=== PATIENT | female | born 1990 | race Caucasian/White ===

== ENCOUNTER 2017-05-05 23:28 | Emergency (ER) | payer MEDICAID, SELFPAY ==
[2017-05-05 23:30] VITALS: BP 109/70; PULSE 78; RESP 16; TEMP 36.6; O2SAT 98
--- NOTE | 2017-05-05 23:59 | ED.VISSUMM ---
- ER Visit Summary Date of Service: 05/05/17 Chief Complaint: possible abscess History of Present Illness: The patient is a 27 F history of anxiety, asthma and diet-controlled diabetes. Patient states the last 2 days she has had discomfort in her perineal region. Just below her left labia. No fever. She has never had a labial abscess. Denies other complaints. Physical Examination: Well appearing young female. Vital signs are stable and afebrile. H EENT exam unremarkable neck nontender. Lungs clear to auscultation bilaterally. Heart regular rhythm no murmur. Abdomen is soft and nontender. Normal bowel sounds no peritoneal signs. Extremities moves all 4. Neurovascular intact. With a female nurse in the room her external exam is completely unremarkable just inferior to her left labia majora between the labia and her anus there is a small area of tenderness I do not feel an abscess. There is no redness. There is no swelling. The perineal region otherwise appears normal. Test Results: None Emergency Department Course and Treatment: This will be treated as a potentially early abscess. She will be placed on Keflex 500 4 times daily for 7 days. Warm soaks. Return if it is looks a lot worse or gets significantly swollen. At this time there is absolutely nothing to drain. Treatment Plan: Keflex 500 mg 4 times daily for 7 days. Disposition: Discharge Impression: Perineal tenderness rule out early abscess This note was generated with [employer] dictation software. It may contain incorrect words, spelling, and punctuation that were not noted in review of the chart prior to signing ED Disposition - Plan for ED Patient: Chief Complaint: Abscess Referrals: Molly Cano MD [Primary Care Provider] -
--- NOTE | 2017-05-06 00:02 | ED.DEP ---
ED Disposition - Plan for ED Patient: Disposition: Home or Assisted Living Chief Complaint: Abscess Instructions: ED Staph Infec Abx Tx Only Prescriptions: Cephalexin [Keflex] 500 mg PO Q6 #30 cap Cephalexin [Keflex] 500 mg PO Q6 #30 capsule Referrals: Molly Cano MD [Primary Care Provider] - 3-5 Days if not improving Additional Instructions: Tylenol and Motrin for pain. Warm soaks 20 minutes at time twice a day. Keflex 4 times a day in case this is an early abscess. Return if this gets a lot larger to have it drained.
[2017-05-06] MEDS: Cephalexin 250 MG Capsule 500 MG PO (00:10)
== END 2017-05-06 00:14 | disposition home or self-care (01) ==
LOC: ED 05-06 00:08
PROVIDERS: Emergency Provider Emergency Medicine
DX: R10.2 Pelvic and perineal pain (principal); Z72.0 Tobacco use
CPT/HCPCS: 99283

== ENCOUNTER 2017-05-14 15:38 | Emergency (ER) | payer SELFPAY ==
[2017-05-14 15:39] VITALS: BP 115/90; PULSE 131; RESP 16; TEMP 37.7; O2SAT 99; BMI 29.0
--- NOTE | 2017-05-14 16:40 | CT_ITS ---
STUDY: CT BRAIN WITHOUT CONTRAST REASON FOR EXAM: Female, 27 years old. Headache. Opioid abuse RADIATION DOSAGE (If Supplied By Facility): CTDIvol = ( 44.99 ) mGy, DLP = ( 796.11 ) mGycm TECHNIQUE: Transaxial CT imaging of the brain was performed without administration of intravenous contrast material. Individualized dose optimization techniques were used for this CT. COMPARISON: 03/06/2015 FINDINGS: Normal soft tissue structures. Normal calvarium. Normal size ventricles and extra-axial spaces for the patient's age. Normal white matter tracts of the cerebral hemispheres. Normal basal ganglia and thalami. Normal brainstem. Normal cerebellum. There is no intracranial hemorrhage. There are no findings of an acute ischemic infarction. Left maxillary sinus mucosal retention cyst. CT/Brain/Head without Contrast IMPRESSION: Normal unenhanced CT scan of the brain. Electronically Signed: Shahid Wiggins DO at 18:05 EDT Tel , Service support ,
[2017-05-14] MEDS: 0.9% Normal Saline 1,000 ML 150 ML IV (17:11)
[2017-05-14 17:17] LABS: Absolute Lymphocyte Count 3.54 X10^3/ul (0.83-4.51); Absolute Neutrophil Count 6.9 X10^3/uL (2.0-7.7); Basophil# 0.05 X10^3/uL; Basophil% 0.4 % (0-1); Eosinophil# 0.41 X10^3/uL; Eosinophils% 3.5 % (0-5); Hematocrit 47.2 % (37-47); Hemoglobin 15.8 g/dl (12.0-15.0); Lymphocyte # 3.54 X10^3/ul (4.0); Lymphocyte % 30.4 % (19-41); Mean Corp Hgb Conc 33.5 g/gl (32-36); Mean Corpuscular Hgb 28.8 pg (27.0-32.0); Mean Platelet Vol. 10.5 fl (6.2-12.0); Neutrophil # 6.91 X10^3/uL (2.7-7.7); Neutrophil % 59.5 % (47-70); Platelet Count 384 K/mm3 (150-450); RBC Distribution Width CV 12.9 % (11.6-14.6); RBC Distribution Width SD 40.8 fl (35.1-43.9); Red Blood Count 5.49 M/mm3 (4.2-5.4); White Blood Count 11.6 K/mm3 (4.4-11.0)
[2017-05-14 17:26] LABS: POSITIVE COUNT NO; POSITIVE DIFFERENTIAL NO; POSITIVE MORPHOLOGY NO
[2017-05-14 17:36] LABS: BUN 13 mg/dL (7-18); Creatinine, Serum 0.76 mg/dL (0.55-1.02); Glucose 145 mg/dL (74-106)
[2017-05-14 17:37] LABS: Anion Gap 9 (5-15); Calcium,Total 9.3 mg/dL (8.5-10.1); Chloride 107 mmol/L (98-107); EST Glomerular Filtration Rate 97 mL/min (>60); Est Glom Filt Rate - Afr Amer 118 mL/min (>60); Estimated Creatinine Clearance 96.86 ml/min; Potassium 4.2 mmol/L (3.5-5.1); Sodium Level 139 mmol/L (136-145)
[2017-05-14 18:40] LABS: Bacteria 0 SEEN /hpf (None Seen); Mucous, Urine 0 SEEN /hpf (<or=2+); White Blood Cells 0 SEEN /hpf (0-5)
--- NOTE | 2017-05-14 18:42 | ED.VISSUMM ---
- ER Visit Summary Date of Service: 05/14/17 Chief Complaint: Left hip pain] History of Present Illness: The patient is a 27 F [presents to the emergency department with multiple complaints. The main reason she is here she developed sudden onset of left hip pain that started about 2 hours ago. Patient was riding in a car when the pain started. Patient is never had pain like this before. Patient denies any trauma. Patient is able to ambulate. Patient also describes a headache that started 20 minutes after her hip pain to the left side of her head. Patient describes some numbness and tingling to the left fingers and left toes. Patient denies any photophobia. She denies any nausea or vomiting. Patient does have history of migraines however this headache seems different than the migraine she has had.] Physical Examination: [HELEATHA-PERRLAANA PAULAMI. Cranial nerves II through XII grossly intact. TMs clear. Mucous membranes moist. No adenopathy. Cardiovascular-regular rate and rhythm without murmur or ectopy Lungs-clear to auscultation, chest wall stable without crepitus or subcu emphysema Abdomen-normoactive bowel sounds, soft, nontender, no rebound or rigidity, no peritoneal signs. Neuro wmwo-ubaiqc-qawa and heel to vargas testing within normal limits, negative Romberg, negative pronator drift, fundi benign Extremities-intact ?4, normal range of motion, normal pulses, atraumatic]. Left hip-patient does not have tenderness over the hip but more over her left iliac crest that reproduces her pain. Test Results: [CBC with differential showed a slightly elevated white count of 11.6, hemoglobin 15.8, hematocrit 47, platelets 384. Chemistries were unremarkable. CT scan of the brain without contrast was read as normal.] Patient's glucose was slightly elevated at 145. Emergency Department Course and Treatment: [Patient will be medicated with Reglan, Benadryl, and Toradol.] Treatment Plan: [Patient will be referred to primary care physician for follow-up] Disposition: [Discharge to home in stable condition] Impression: [Cephalgia Left pelvis pain-etiology uncertain] This note was generated with [employer] software. It may contain incorrect words, spelling, and punctuation that were not noted in review of the chart prior to signing ED Disposition - Plan for ED Patient: Chief Complaint: Lower Extremity Injury Referrals: Care Physician,No Primary [Primary Care Provider] -
--- NOTE | 2017-05-14 18:45 | ED.DCSUM_ITS ---
- ER Visit Summary Date of Service: 05/14/17 Chief Complaint: Left hip pain] History of Present Illness: The patient is a 27 F [presents to the emergency department with multiple complaints. The main reason she is here she developed sudden onset of left hip pain that started about 2 hours ago. Patient was riding in a car when the pain started. Patient is never had pain like this before. Patient denies any trauma. Patient is able to ambulate. Patient also describes a headache that started 20 minutes after her hip pain to the left side of her head. Patient describes some numbness and tingling to the left fingers and left toes. Patient denies any photophobia. She denies any nausea or vomiting. Patient does have history of migraines however this headache seems different than the migraine she has had.] Physical Examination: [HELEATHA-PERRLAANA PAULAMI. Cranial nerves II through XII grossly intact. TMs clear. Mucous membranes moist. No adenopathy. Cardiovascular-regular rate and rhythm without murmur or ectopy Lungs-clear to auscultation, chest wall stable without crepitus or subcu emphysema Abdomen-normoactive bowel sounds, soft, nontender, no rebound or rigidity, no peritoneal signs. Neuro hnhn-qoncpb-gwli and heel to vargas testing within normal limits, negative Romberg, negative pronator drift, fundi benign Extremities-intact ?4, normal range of motion, normal pulses, atraumatic]. Left hip-patient does not have tenderness over the hip but more over her left iliac crest that reproduces her pain. Test Results: [CBC with differential showed a slightly elevated white count of 11.6, hemoglobin 15.8, hematocrit 47, platelets 384. Chemistries were unremarkable. CT scan of the brain without contrast was read as normal.] Patient's glucose was slightly elevated at 145. Emergency Department Course and Treatment: [Patient will be medicated with Reglan, Benadryl, and Toradol.] Treatment Plan: [Patient will be referred to primary care physician for follow- up] Disposition: [Discharge to home in stable condition] Impression: [Cephalgia Left pelvis pain-etiology uncertain] This note was generated with [employer] software. It may contain incorrect words, spelling, and punctuation that were not noted in review of the chart prior to signing ED Disposition - Plan for ED Patient: Chief Complaint: Lower Extremity Injury Referrals: Care Physician,No Primary [Primary Care Provider] -
--- NOTE | 2017-05-14 18:45 | ED.DEP ---
ED Disposition - Plan for ED Patient: Chief Complaint: Lower Extremity Injury Prescriptions: Naproxen [Naprosyn] 500 mg PO BID PRN #20 tab Referrals: Care Physician,No Primary [Primary Care Provider] - Ancelmo Ferreira MD [STAFF PHYSICIAN] - 5-7 Days
[2017-05-14 18:48] LABS: Color, Urine Yellow (Yellow); Glucose, Dipstick Normal (Normal); Ketone-Dipstick 5 mg/dl (Negative); Leukocyte Esterase-Dipstick Negative /ul (Negative); Nitrite-Dipstick Negative (Negative); Occult Blood-Urine 50 /ul (Negative); Protein-Dipstick 30 mg/dl (Negative); Urine Bilirubin Dipstick Negative (Negative); Urine Clarity Clear (Clear); Urine Urobilinogen Normal (Normal)
[2017-05-14] MEDS: DiphenhydrAMINE 50 MG/ML Syringe 25 MG IV (18:48)
[2017-05-14] MEDS: Ketorolac 30 MG/ML Syringe IV (18:48)
[2017-05-14 18:55] LABS: Red Blood Cells-Urine 0-5 SEEN /hpf (0-5); Squamous Epithelial Cells - UA 0-5 SEEN /hpf (5-10)
[2017-05-14 19:11] LABS: Amphetamine Urine VISTA NEGATIVE (<1000 ng/mL); Barbiturate Urine VISTA NEGATIVE (< 200 ng/mL); Benzodiazepine Urine VISTA NEGATIVE (< 200 ng/mL); Cocaine Urine VISTA NEGATIVE (< 300 ng/mL); Ecstacy Urine VISTA NEGATIVE (< 500 ng/mL); Methadone Urine VISTA NEGATIVE (< 300 ng/mL); PCP Urine VISTA NEGATIVE (< 25 ng/mL); THC Urine VISTA NEGATIVE (< 50 ng/mL); Vista UDS pH Range 6
--- NOTE | 2017-05-14 19:11 | ED.DEP ---
ED Disposition - Plan for ED Patient: Chief Complaint: Lower Extremity Injury Instructions: ED Cephalgia Unspecified Prescriptions: Naproxen [Naprosyn] 500 mg PO BID PRN #20 tab Referrals: Ancelmo Ferreira MD [STAFF PHYSICIAN] - 5-7 Days Care Physician,No Primary [Primary Care Provider] -
[2017-05-14 19:17] VITALS: PULSE 102; RESP 14; O2SAT 99
== END 2017-05-14 19:18 | disposition home or self-care (01) ==
PROVIDERS: Emergency Provider Emergency Medicine
DX: R10.2 Pelvic and perineal pain (principal); R51 Headache; Z72.0 Tobacco use
CPT/HCPCS: 70450; 80048; 80307; 81001; 85025; 96361; 96374; 96375; 99283; J7030; A4216

== ENCOUNTER 2017-06-26 00:52 | Emergency (ER) | payer MEDICAID, SELFPAY ==
[2017-06-26 00:56] VITALS: BP 131/72; PULSE 116; RESP 21; TEMP 37.3; O2SAT 98; BMI 37.0
--- NOTE | 2017-06-26 01:01 | EKG12_ITS ---
Test Reason : CP Blood Pressure : / mmHG Vent. Rate : 111 BPM Atrial Rate : 111 BPM P-R Int : 144 ms QRS Dur : 084 ms QT Int : 334 ms P-R-T Axes : 052 026 022 degrees QTc Int : 454 ms Sinus tachycardia Inferior infarct , age undetermined Abnormal ECG Confirmed by CAROLINA SHETTY, MARY ([id number]), commercial production editor TEN AGOSTO ([id number]) on 06/28/2017 3:27:24 PM Referred By: MEMO Confirmed By:MARY FIGUEROA MD
--- NOTE | 2017-06-26 01:01 | RAD_ITS ---
STUDY: X-RAY CHEST REASON FOR EXAM: Female, 27 years old. Chest tightness palpitations one hour TECHNIQUE: PA and lateral views of the chest. COMPARISON: December 30, 2013 chest x-ray FINDINGS: The lung markings are relatively stable. There is minimal interstitial prominence in the middle lobes and lingula. There is no demonstrated pleural abnormality. Normal size heart. Normal mediastinum and mohan. Normal visualized pulmonary arteries. Normal visualized aortic arch and descending thoracic aorta. There are diffuse degenerative changes of the visualized thoracic spine. Normal visualized ribs, clavicles, and shoulders. There is no demonstrated abnormality of the visualized soft tissue structures of the upper abdomen. RAD/Chest PA and Lateral IMPRESSION: Stable chest no evidence of acute focal infiltrate. Electronically Signed: Idalia Vega MD at 1:30 EDT Tel , Service support ,
[2017-06-26 01:17] LABS: Absolute Neutrophil Count 11.4 X10^3/uL (2.0-7.7); Basophil# 0.05 X10^3/uL; Basophil% 0.3 % (0-1); Eosinophil# 0.37 X10^3/uL; Eosinophils% 2.3 % (0-5); Hematocrit 43.5 % (37-47); Hemoglobin 14.9 g/dl (12.0-15.0); Lymphocyte % 16.9 % (19-41); Mean Corp Hgb Conc 34.3 g/gl (32-36); Mean Corpuscular Hgb 28.3 pg (27.0-32.0); Mean Corpuscular Volume 82.5 fL (81-99); Mean Platelet Vol. 10.3 fl (6.2-12.0); Monocyte# 1.33 X10^3/uL; Monocyte% 8.3 % (0-10); Neutrophil # 11.44 X10^3/uL (2.7-7.7); Neutrophil % 71.9 % (47-70); Platelet Count 380 K/mm3 (150-450); RBC Distribution Width CV 13.1 % (11.6-14.6); RBC Distribution Width SD 39.4 fl (35.1-43.9); Red Blood Count 5.27 M/mm3 (4.2-5.4); White Blood Count 15.9 K/mm3 (4.4-11.0)
[2017-06-26 01:18] LABS: POSITIVE COUNT NO; POSITIVE DIFFERENTIAL NO; POSITIVE MORPHOLOGY NO
[2017-06-26] MEDS: 0.9% Normal Saline 1,000 ML 1000 ML IV (01:19)
[2017-06-26 01:24] LABS: D-Dimer Quantitative (DVT/PE) < 0.27 FEU/ug/m (0.27-0.49)
[2017-06-26 01:31] LABS: Anion Gap 13 (5-15); BUN 8 mg/dL (7-18); BUN/Creat Ratio 10.8 RATIO (10-20); Calcium,Total 9.2 mg/dL (8.5-10.1); Chloride 107 mmol/L (98-107); Creatinine, Serum 0.74 mg/dL (0.55-1.02); EST Glomerular Filtration Rate 101 mL/min (>60); Est Glom Filt Rate - Afr Amer 122 mL/min (>60); Estimated Creatinine Clearance 99.48 ml/min; Glucose 171 mg/dL (74-106); Potassium 3.4 mmol/L (3.5-5.1); Sodium Level 138 mmol/L (136-145); Thyroid Stim Hormone (TSH) 3.44 uIU/mL (0.358-3.74)
[2017-06-26 01:33] LABS: Lithium < 0.20 mmol/L (0.60-1.20)
--- NOTE | 2017-06-26 01:36 | ED.RN ---
PATIENT REQUESTS PAIN MEDICATION FOR HEADACHE, DR. HAMPTON MADE AWARE.
--- NOTE | 2017-06-26 01:57 | ED.DCSUM_ITS ---
- ER Visit Summary Date of Service: 06/26/17 Chief Complaint: Palpitations and chest pain History of Present Illness: The patient is a 27 F presenting for evaluation secondary to palpitations and chest pain. Patient states that she has a prior history of bipolar, anxiety, diabetes, hypertension, high cholesterol. Patient states that she takes atenolol for tachycardia and palpitations, as well as lithium Wellbutrin and Latuda. Patient states that she was supposed to be on diabetes hypertension high cholesterol medications but she stopped those a year ago. Patient reports that tonight she had a onset of chest tightness 1 hour ago. She states that associated with headache feelings of palpitations and shortness of breath. She has had prior similar episodes with tachycardia and anxiety. She denies any DVT or PE risk factors. Cardiovascular risk factors do include hypertension diabetes high cholesterol and smoking. She has never had a stress test. She states that she has had some subjective fevers but denies any other infectious signs or symptoms such as cough neck stiffness abnormal rashes nausea vomiting diarrhea or sore throat. Review of systems otherwise negative. Physical Examination: Vital signs notable for tachycardia rate of 116, temperature 99.2. Well-nourished female no acute distress. Head normocephalic. Moist mucous members. No JVD. Heart was tachycardic and regular no murmurs normal S1-S2. Lungs sounds clear to auscultation bilaterally no rhonchi rales or wheezes. Abdomen soft nontender nondistended. Back was nontender. Extremities showed no evidence of edema, peripheral pulses 2+ and symmetric ?4, no evidence of petechia, but the patient did have some erythema on the chest and back and face that was blanching. Patient is alert and oriented. Remainder physical otherwise unremarkable. Test Results: EKG shows sinus tachycardia with a rate of 111. There are Q waves inferiorly that are present on an EKG from October 2014. CBC demonstrates leukocytosis of 15.9 with 71 segs. Chemistry essentially unremarkable, troponin negative, d-dimer negative, lithium level 0, TSH within normal limits, chest x-ray shows no acute pathology per radiology. Emergency Department Course and Treatment: Patient presented with palpitations and chest pain. Given the patient's tachycardia she was worked up in addition to cardiovascular etiologies was worked up for the possibility of lithium toxicity, hyperthyroidism, or pulmonary embolism. Patient does not have presentation of serotonin syndrome at this point. Patient's workup did show leukocytosis with mild neutrophilic predominance. Patient could potentially be an fighting a viral infection given her constellation of symptoms. Her troponin d-dimer lithium TSH studies EKG and chest x-ray were all unremarkable. Patient continued to have tachycardia after 1 L normal saline. She states she has had a history of this in the past, and is on beta-blockers for this. She was administered atenolol, as well as Tylenol. Patient will be given a referral to cardiology as she does not have a local document design specialist. I believe that the patient is safe for discharge, her heart score is 2, her GUANACO risk score is 1. Patient will be discharged with outpatient follow-up with Dr. Caldera. Disposition: Discharge Impression: 1. Palpitations with sinus tachycardia 2. Leukocytosis This note was generated with [email or web address] dictation software. It may contain incorrect words, spelling, and punctuation that were not noted in review of the chart prior to signing ED Disposition - Plan for ED Patient: Disposition: Home or Assisted Living Chief Complaint: Chest Pain Diagnosis: Heart palpitations Instructions: ED Palpitations Referrals: Michael Caldera MD [STAFF PHYSICIAN] - 3-5 Days
[2017-06-26 01:59] VITALS: BP 138/95; PULSE 107; RESP 26; O2SAT 96
[2017-06-26] MEDS: Acetaminophen 500 MG Tablet 1000 MG PO (02:06)
[2017-06-26] MEDS: Atenolol 50 MG Tablet PO (02:06)
== END 2017-06-26 02:23 | disposition home or self-care (01) ==
PROVIDERS: Emergency Provider Emergency Medicine; Family Provider Internal Medicine; PCP Internal Medicine
DX: R00.0 Tachycardia, unspecified (principal); R00.2 Palpitations; D72.829 Elevated white blood cell count, unspecified; F31.9 Bipolar disorder, unspecified; F41.9 Anxiety disorder, unspecified; I10 Essential (primary) hypertension; E78.00 Pure hypercholesterolemia, unspecified; F17.200 Nicotine dependence, unspecified, uncomplicated; Z79.899 Other long term (current) drug therapy
CPT/HCPCS: 71046; 80048; 80178; 84443; 84484; 85025; 85379; 93005; 96360; 99285; J7030

== ENCOUNTER 2017-07-20 00:53 | Emergency (ER) | payer MEDICAID, SELFPAY ==
[2017-07-20 00:56] VITALS: BP 157/100; PULSE 62; RESP 16; TEMP 36.9; O2SAT 98; BMI 29.2
--- NOTE | 2017-07-20 01:24 | ED.VISSUMM ---
- ER Visit Summary Date of Service: 07/20/17 Chief Complaint: Right upper teeth pain History of Present Illness: The patient is a 27 F who presents with pain right upper teeth for the past couple days. She denies any alleviating or exacerbating factors. She denies fever, chills night sweats. She denies any ocular, auditory or visual symptoms. She denies inability to open or close her mouth completely. She has no history rheumatic fever, murmur, SPE, IV drug use to be immune suppressed. 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 She states she has an appointment with her dentist on Saturday. She is a smoker of one pack per day. Physical Examination: Vital signs remarkable blood pressure 157/100. Head is atraumatic normocephalic. Pupils equal round reactive paradoxic muscle intact. Conjunctive is not injected. Sclerae anicteric. TMs are normal. There is no TMJ tenderness. There is no evidence of malocclusion or trismus. Nares patent with no discharge. Patient has numerous cavities of her right upper teeth. There is no swelling of the gum or face. There is no evidence of facial cellulitis. Trach is midline. There is no stridor. Heart is regular without murmur, gallop or rub. S1 and S2 are normal. Lungs are clear to auscultation with good movement of air bilaterally. Test Results: None Emergency Department Course and Treatment: Patient was treated with NSAIDs. She was instructed to keep her appointment with her dentist. Treatment Plan: Anti-inflammatory Disposition: Discharged to home with outpatient follow-up with dentist on Saturday Impression: 1. Pain right upper first bicuspid, second bicuspid and first molar secondary to caries involving the enamel and most likely the dentin. This note was generated with [employer] dictation software. It may contain incorrect words, spelling, and punctuation that were not noted in review of the chart prior to signing ED Disposition - Plan for ED Patient: Disposition: Home or Assisted Living Chief Complaint: Dental Instructions: ED Cavity Dental Prescriptions: Naproxen [Naprosyn] 500 mg PO BID #14 tab Referrals: Molly Cano MD [Primary Care Provider] - Dentist,Your [STAFF PHYSICIAN] - Keep Rober[facility] appointment
[2017-07-20] MEDS: Naproxen 250 MG Tablet 500 MG PO (01:35)
== END 2017-07-20 01:37 | disposition home or self-care (01) ==
PROVIDERS: Emergency Provider Emergency Medicine; Family Provider Internal Medicine; PCP Internal Medicine
DX: K02.9 Dental caries, unspecified (principal); K08.89 Other specified disorders of teeth and supporting structures; F17.200 Nicotine dependence, unspecified, uncomplicated; Z79.899 Other long term (current) drug therapy
CPT/HCPCS: 99283

== ENCOUNTER 2017-08-13 16:11 | Emergency (ER) | payer MEDICAID, SELFPAY ==
[2017-08-13 16:11] VITALS: BP 141/72; PULSE 90; RESP 16; TEMP 36.8; O2SAT 99; BMI 30.9
[2017-08-13 16:35] LABS: Bedside Glucose 281 mg/dL (70-110)
--- NOTE | 2017-08-13 16:43 | ED.VISSUMM ---
- ER Visit Summary Date of Service: 08/13/17 Chief Complaint: Elevated blood sugar History of Present Illness: The patient is a 27 F presenting from urgent care for elevated blood sugar. She states that she has a history of diabetes and has been off her medication for approximately a year. She states she lost her insurance and recently regained insurance. She went to urgent care today and they sent her to the ED. She complains of headache, nausea, urinary frequency. Physical Examination: Vitals are stable. Patient is afebrile. Alert no acute distress. HEENT exam is unremarkable. Neck is supple. Lungs are clear and equal bilaterally. Heart is regular rate and rhythm. Abdomen is soft nontender nondistended. Pelvic: No vaginal discharge, no cervical motion tenderness, no adnexal tenderness. Extremities are unremarkable. Skin is warm and dry. No focal neurologic deficit. Remainder of exam is unremarkable. Emergency Department Course and Treatment: CBC unremarkable. Chemistries show glucose 268, BUN 22. Ketones are negative. Urinalysis shows positive glucose, 0 white cells. HCG negative. Patient was given Compazine, Benadryl, IV fluids. She has resolution of her headache following medications. She is feeling improved. She states she has Januvia available to her at home and she will start taking this. She is advised to follow-up with her primary care physician. Advised return to ED if worsening complaints. Disposition: Discharge home Impression: Hyperglycemia, headache resolved This note was generated with [employer] dictation software. It may contain incorrect words, spelling, and punctuation that were not noted in review of the chart prior to signing ED Disposition - Plan for ED Patient: Chief Complaint: Hyperglycemia Instructions: ED Hyperglycemia Diabetic Referrals: Molly Cano MD [Primary Care Provider] -
[2017-08-13] MEDS: 0.9% Normal Saline 1,000 ML 1000 ML IV (16:50)
[2017-08-13] MEDS: DiphenhydrAMINE 50 MG/ML Syringe 25 MG IV (16:51)
[2017-08-13] MEDS: proCHLORPERazine 10 MG/2 ML Vial IV (16:51)
[2017-08-13 17:18] LABS: Absolute Lymphocyte Count 3.28 X10^3/ul (0.83-4.51); Absolute Neutrophil Count 4.9 X10^3/uL (2.0-7.7); Basophil# 0.05 X10^3/uL; Basophil% 0.5 % (0-1); Eosinophil# 0.47 X10^3/uL; Hematocrit 40.4 % (37-47); Hemoglobin 13.6 g/dl (12.0-15.0); Lymphocyte # 3.28 X10^3/ul (4.0); Lymphocyte % 35.2 % (19-41); Mean Corp Hgb Conc 33.7 g/gl (32-36); Mean Corpuscular Hgb 27.9 pg (27.0-32.0); Mean Platelet Vol. 9.8 fl (6.2-12.0); Monocyte# 0.57 X10^3/uL; Monocyte% 6.1 % (0-10); Neutrophil % 52.8 % (47-70); Platelet Count 264 K/mm3 (150-450); RBC Distribution Width CV 12.5 % (11.6-14.6); RBC Distribution Width SD 37.4 fl (35.1-43.9); Red Blood Count 4.87 M/mm3 (4.2-5.4); White Blood Count 9.3 K/mm3 (4.4-11.0)
[2017-08-13 17:20] LABS: POSITIVE COUNT NO; POSITIVE DIFFERENTIAL NO; POSITIVE MORPHOLOGY NO
[2017-08-13 17:24] LABS: Bacteria 0 SEEN /hpf (None Seen); Mucous, Urine 0 SEEN /hpf (<or=2+); Red Blood Cells-Urine 0 SEEN /hpf (0-5); White Blood Cells 0 SEEN /hpf (0-5)
[2017-08-13 17:27] LABS: Color, Urine Yellow (Yellow); Glucose, Dipstick 1000 mg/dl (Normal); Ketone-Dipstick 5 mg/dl (Negative); Leukocyte Esterase-Dipstick Negative /ul (Negative); Nitrite-Dipstick Negative (Negative); Occult Blood-Urine 50 /ul (Negative); Protein-Dipstick 15 mg/dl (Negative); Urine Bilirubin Dipstick Negative (Negative); Urine Clarity Clear (Clear); Urine Urobilinogen Normal (Normal)
[2017-08-13 17:37] LABS: Anion Gap 9 (5-15); BUN 22 mg/dL (7-18); BUN/Creat Ratio 25.9 RATIO (10-20); Calcium,Total 8.8 mg/dL (8.5-10.1); Chloride 104 mmol/L (98-107); Creatinine, Serum 0.85 mg/dL (0.55-1.02); EST Glomerular Filtration Rate 86 mL/min (>60); Est Glom Filt Rate - Afr Amer 104 mL/min (>60); Estimated Creatinine Clearance 86.61 ml/min; Glucose 268 mg/dL (74-106); Potassium 3.7 mmol/L (3.5-5.1); Sodium Level 136 mmol/L (136-145)
[2017-08-13 17:40] VITALS: BP 121/80; PULSE 88; RESP 16; O2SAT 94
[2017-08-13 17:43] LABS: Pregnancy, Serum, hCG Quali. NEGATIVE Negative (0-9 Nonpreg)
[2017-08-13 17:45] LABS: Squamous Epithelial Cells - UA 0-5 SEEN /hpf (5-10)
--- NOTE | 2017-08-13 18:07 | ED.DEP ---
ED Disposition - Plan for ED Patient: Chief Complaint: Hyperglycemia Instructions: ED Hyperglycemia Diabetic Referrals: Molly Cano MD [Primary Care Provider] -
[2017-08-13 18:16] LABS: Bedside Glucose 261 mg/dL (70-110)
== END 2017-08-13 18:38 | disposition home or self-care (01) ==
LOC: ED 16:48
PROVIDERS: Emergency Provider Emergency Medicine; Family Provider Internal Medicine; PCP Internal Medicine
DX: E11.65 Type 2 diabetes mellitus with hyperglycemia (principal); R51 Headache; Z72.0 Tobacco use; Z79.899 Other long term (current) drug therapy
CPT/HCPCS: 80048; 81001; 82009; 82962; 84703; 85025; 96361; 96374; 96375; 99283; J7030; A4216

== ENCOUNTER 2017-11-04 11:01 | Emergency (ER) | payer MEDICAID, SELFPAY ==
[2017-11-04 11:02] VITALS: BP 111/74; PULSE 116; RESP 17; TEMP 37.1; O2SAT 98; BMI 31.1
[2017-11-04] MEDS: Metoclopramide 10 MG/2 ML Vial IV (11:39)
[2017-11-04] MEDS: 0.9% Normal Saline 1,000 ML 1000 ML IV (11:39)
[2017-11-04] MEDS: DiphenhydrAMINE 50 MG/ML Syringe 25 MG IV (11:39)
[2017-11-04] MEDS: Ketorolac 30 MG/ML Syringe IV (12:29)
--- NOTE | 2017-11-04 12:43 | ED.VISSUMM ---
- ER Visit Summary Date of Service: 11/04/17 Chief Complaint: [headache] History of Present Illness: The patient is a 27 F [that presents with gradual onset headache that began 3 days ago. She has had headaches on and off for the last 5 years. She took some NSAIDs at home without significant relief last night. She has not yet taken anything today. She denies any other associated symptoms or complaints. She overall appears well and nontoxic. No recent fever or illness. She denies any recent fall or head trauma. She states this headache is exactly the same as her prior headaches in the past. She has no other complaints.] Physical Examination: [General: The patient appears well and in no apparent distress. Patient is resting comfortably on cart. Skin: Warm, dry, no pallor noted. No rash. Head: Normocephalic, atraumatic. No temporal artery tenderness or jaw claudication. Neck: Supple, nontender. Eye: PERRLA, EOMI ENT: Moist mucus membranes, pharynx within normal limits. No tenderness or erythema. Cardiovascular: Regular Rate and Rhythm, no gallups or rubs Respiratory: Patient is in no distress, no accessory muscle use, lungs are clear to auscultation, no wheezing, rales or rhonchi Musculoskeletal: normal ROM, no deformity, no tenderness, no swelling. 2+ radial and DP pulses symmetric. GI: No tenderness to palpation, no masses appreciated. No rebound, guarding, or rigidity noted. Neurological: A&O, normal strength and sensation. GCS 15. NIH equals 0. Psychiatric: Cooperative] Test Results: [] Emergency Department Course and Treatment: [Patient was initially given IV fluids, Reglan, and Benadryl. She was then given IV Toradol. On reevaluation at 1235 she states her headache is improved. Her neurological exam remains normal. She states she had an outpatient head CT last week that she was told was normal. I do not feel repeat imaging or further evaluation is indicated in the emergency department at this time. I do not feel her presentation is consistent with acute intracranial process or subarachnoid hemorrhage. She was advised to follow closely with her primary provider and return with any new or worsening symptoms. Patient understands and is agreeable with this plan of care. Patient was discharged home in stable and improved condition.] Treatment Plan: [see above] Disposition: [discharge home, stable condition] Impression: [Acute on chronic headache - improved] This note was generated with [employer] dictation software. It may contain incorrect words, spelling, and punctuation that were not noted in review of the chart prior to signing ED Disposition - Plan for ED Patient: Disposition: Home or Assisted Living Chief Complaint: Headache Instructions: ED Cephalgia Unspecified Referrals: Molly Cano MD [Primary Care Provider] -
[2017-11-04 12:51] VITALS: PULSE 105; RESP 17; O2SAT 97
== END 2017-11-04 12:52 | disposition home or self-care (01) ==
PROVIDERS: Emergency Provider Emergency Medicine; Family Provider Internal Medicine; PCP Internal Medicine
DX: R51 Headache (principal); F41.9 Anxiety disorder, unspecified; F31.9 Bipolar disorder, unspecified; F43.10 Post-traumatic stress disorder, unspecified; Z72.0 Tobacco use; Z79.899 Other long term (current) drug therapy
CPT/HCPCS: 96361; 96374; 96375; 99283; J7030; A4216

== ENCOUNTER 2017-11-05 22:46 | Emergency (ER) | payer MEDICAID, SELFPAY ==
[2017-11-05 22:46] VITALS: BP 105/74; PULSE 99; RESP 16; TEMP 36.4; O2SAT 97; BMI 30.9
--- NOTE | 2017-11-05 23:30 | ED.VISSUMM ---
- ER Visit Summary Date of Service: 11/05/17 Chief Complaint: Mechanical fall History of Present Illness: The patient is a 27 F presents to the emergency department after mechanical fall. Patient states she was visiting a friend in [place]. She was going upstairs. They were carpeted. She tripped over her cat and slid backwards. She struck her low back. She did not hit her head. She denies loss of consciousness. She has been able to ambulate. Her only current complaint is of lower back pain into her left buttock. She has not taken anything for her pain. The patient is otherwise healthy. She does have a history of psychiatric illness but takes no anticoagulants. Physical Examination: Afebrile, vitals unremarkable. Well-appearing female no acute distress. Head is normocephalic, atraumatic. Pupil's equal round reactive, extraocular muscles intact. Neck supple. Heart regular rate and rhythm. Lungs clear, chest nontender. Abdomen soft, nontender, nondistended. No pulsatile mass. Patient has paraspinal tenderness in the lumbar area, but no bony tenderness. Straight leg raise is negative bilaterally. 2+ symmetric lower extremity pulses. 2+ reflexes. No clonus. No weakness of dorsiflexion, plantar flexion, or extensor hallucis longus bilaterally. Test Results: [] Emergency Department Course and Treatment: The patient has no red flag symptoms. She has a normal steady gait. She was given oral [place] for pain control. I did obtain plain films. There is no evidence of acute fracture. Her pain was improved. The patient will be treated with anti-inflammatories and antispasmodics. At this time, I do feel that she is safe for outpatient therapy. Treatment Plan: [] Disposition: Discharge Impression: Lumbar contusion status post fall This note was generated with [employer] dictation software. It may contain incorrect words, spelling, and punctuation that were not noted in review of the chart prior to signing ED Disposition - Plan for ED Patient: Disposition: Home or Assisted Living Chief Complaint: Fall Instructions: ED Sprain Strain Lumbar Prescriptions: Naproxen [Naprosyn] 500 mg PO BID PRN #20 tab Cyclobenzaprine [Flexeril] 10 mg PO TID PRN #20 tab PRN Reason: Muscle Spasm Referrals: Molly Cano MD [Primary Care Provider] -
[2017-11-05] MEDS: HYDROcodone Bitartrate/Apap 5/325 Tablet PO (23:31)
--- NOTE | 2017-11-05 23:34 | RAD_ITS ---
STUDY: X-RAY - LUMBAR SPINE REASON FOR EXAM: Female, 27 years old. Low back pain status post fall TECHNIQUE: 3 view(s) of the lumbar spine were obtained. COMPARISON: November 08, 2014 FINDINGS: Normal lumbar lordosis. There is no substantial scoliosis. There is a normal alignment of the vertebrae. Normal vertebral bodies and endplates. Normal disc space heights. The soft tissue structures are unremarkable. RAD/Lumbar Spine 2 or 3 Views IMPRESSION: Normal x-ray examination of the lumbar spine. Electronically Signed: Idalia Vega MD at 0:26 EDT Tel , Service support ,
[2017-11-06 00:43] VITALS: PULSE 78; RESP 16; O2SAT 98
== END 2017-11-06 00:43 | disposition home or self-care (01) ==
LOC: ED 11-06 00:12
PROVIDERS: Emergency Provider Emergency Medicine; Family Provider Internal Medicine; PCP Internal Medicine
DX: S30.0XXA Contusion of lower back and pelvis, initial encounter (principal); I10 Essential (primary) hypertension; F32.9 Major depressive disorder, single episode, unspecified; Z72.0 Tobacco use; Z79.899 Other long term (current) drug therapy; W10.9XXA Fall (on) (from) unspecified stairs and steps, initial encounter; Y93.01 Activity, walking, marching and hiking; Y92.008 Other place in unspecified non-institutional (private) residence as the place of occurrence of the external cause; Y99.8 Other external cause status
CPT/HCPCS: 72100; 99283

== ENCOUNTER 2018-01-10 23:29 | Emergency (ER) | payer SELFPAY ==
[2018-01-10 23:30] VITALS: BP 123/71; PULSE 93; RESP 18; TEMP 36.8; O2SAT 100; BMI 30.2
[2018-01-10] MEDS: Naproxen 500 MG Tablet PO (23:57)
[2018-01-10] MEDS: 0.9% Normal Saline 1,000 ML 999 ML IV (23:57)
[2018-01-11 00:04] LABS: Absolute Lymphocyte Count 4.08 X10^3/ul (0.83-4.51); Absolute Neutrophil Count 3.1 X10^3/uL (2.0-7.7); Basophil# 0.07 X10^3/uL; Basophil% 0.8 % (0-1); Eosinophil# 0.42 X10^3/uL; Hematocrit 38.2 % (37-47); Hemoglobin 13.2 g/dl (12.0-15.0); Lymphocyte # 4.08 X10^3/ul (4.0); Lymphocyte % 48.9 % (19-41); Mean Corp Hgb Conc 34.6 g/gl (32-36); Mean Corpuscular Hgb 27.5 pg (27.0-32.0); Mean Corpuscular Volume 79.6 fL (81-99); Mean Platelet Vol. 10.3 fl (6.2-12.0); Monocyte# 0.65 X10^3/uL; Monocyte% 7.8 % (0-10); Neutrophil # 3.08 X10^3/uL (2.7-7.7); Platelet Count 327 K/mm3 (150-450); RBC Distribution Width CV 14.6 % (11.6-14.6); RBC Distribution Width SD 40.9 fl (35.1-43.9); White Blood Count 8.3 K/mm3 (4.4-11.0)
[2018-01-11 00:05] LABS: POSITIVE COUNT NO; POSITIVE DIFFERENTIAL NO; POSITIVE MORPHOLOGY NO
[2018-01-11 00:17] LABS: Anion Gap 9 (5-15); BUN 14 mg/dL (7-18); BUN/Creat Ratio 17.3 RATIO (10-20); Calcium,Total 8.7 mg/dL (8.5-10.1); Chloride 102 mmol/L (98-107); Creatinine, Serum 0.81 mg/dL (0.55-1.02); EST Glomerular Filtration Rate 90 mL/min (>60); Est Glom Filt Rate - Afr Amer 109 mL/min (>60); Estimated Creatinine Clearance 90.09 ml/min; Glucose 320 mg/dL (74-106); Potassium 3.7 mmol/L (3.5-5.1); Sodium Level 133 mmol/L (136-145)
--- NOTE | 2018-01-11 00:27 | ED.VISSUMM ---
- ER Visit Summary Date of Service: 01/11/18 Chief Complaint: High blood sugar History of Present Illness: The patient is a 28 F who presents with high blood sugar. Today shortly before coming in she checked her blood sugar at home and it was 362. She states that she was recently hospitalized and discharged last week with a prescription for insulin but she could not afford it because of cost $400. She states she attempted to contact the hospital but did not hear back. She is meeting with someone on Saturday for possible financial assistance. She also complains of some neck pain with sharp shooting pains and numbness down her left arm. She denies any chest pain shortness of breath dizziness vomiting diarrhea. Physical Examination: Afebrile vitals normal Moist mucous membranes Heart regular rate and rhythm Lungs clear Abdomen soft Active full range of motion of left upper extremity no edema no reproducible tenderness normal sensation light touch brisk capillary refill palpable radial pulse Test Results: CBC BMP notable for sodium 133 glucose 320. Emergency Department Course and Treatment: Patient was treated with IV fluids and given naproxen for her left upper extremity pain. I do suspect her left arm pain is related to cervical radiculopathy given radiation from neck and her description of it is both sharp and numb. I have placed a consult to case management in regards to her medications. Her glucose is only 320 and we did treat with IV fluids. She is requesting discharge. She will follow-up as an outpatient. Treatment Plan: [] Disposition: Discharge Impression: Diabetic hyperglycemia Cervical radiculopathy This note was generated with [employer] dictation software. It may contain incorrect words, spelling, and punctuation that were not noted in review of the chart prior to signing ED Disposition - Plan for ED Patient: Chief Complaint: Hyperglycemia Referrals: Molly Cano MD [Primary Care Provider] -
--- NOTE | 2018-01-11 00:29 | ED.DEP ---
ED Disposition - Plan for ED Patient: Chief Complaint: Hyperglycemia Instructions: ED Hyperglycemia Diabetic, ED Cervical Radiculopathy Referrals: Molly Cano MD [Primary Care Provider] -
[2018-01-11 00:31] LABS: Bedside Glucose 304 mg/dL (70-110)
[2018-01-11 00:32] VITALS: BP 130/70; PULSE 85; RESP 14; O2SAT 98
--- NOTE | 2018-01-13 09:25 | CM.ED ---
Social Work Note Referral from Dr. Lester for financial concerns. Chart review reveals that the pt is uninsured, but it appears that she has had Medicaid in the past. Placed call and pt unavailable. Left requesting a return phone call. Sabra Guillen, ZACK, DEMARCUS
== END 2018-01-11 00:35 | disposition home or self-care (01) ==
LOC: ED 01-11 00:05
PROVIDERS: Emergency Provider Emergency Medicine; Family Provider Internal Medicine; PCP Internal Medicine
DX: E11.65 Type 2 diabetes mellitus with hyperglycemia (principal); M54.12 Radiculopathy, cervical region; Z72.0 Tobacco use
CPT/HCPCS: 80048; 82962; 85025; 99283; J7030; A4216

== ENCOUNTER 2018-02-06 09:11 | Emergency (ER) | payer SELFPAY ==
[2018-02-06 09:13] VITALS: BP 121/69; PULSE 86; RESP 14; TEMP 36.3; O2SAT 97; BMI 29.5
--- NOTE | 2018-02-06 09:40 | ED.VIS.GEN ---
History of Present Illness Chief Complaint: Back Informant: Patient Onset: Yesterday Context: Onset with activity - lifting case of water off the floor, Sudden Onset Quality: felt pop in left upper back, followed by soreness/pain Location: left upper back/periscapular area Current Severity: Moderate Maximum Severity: Severe Worsened by: movement Relieved by: rest. no help w/ tylenol or ibuprofen. Associated Symptoms: mild discomfort in left thumb. no painful paresthesias. Narrative: No direct trauma. RHD. Prior similar symptoms: No - Past Medical History (1) Opiate overdose Status: Resolved Past Medical History - Allergies and Home Meds Allergies/Adverse Reactions: Allergies egg Adverse Reaction (Verified 02/06/18 09:12) Nausea VOMITING Primary Care Physician: Molly Cano MD [Primary Care Provider] - Surgical History: tonsillectomy, - - section. Smoking Status: Current every day smoker - Family History Maternal Family History: Reports: No pertinent history Paternal Family History: Reports: No pertinent history Review of Systems Musculoskeletal: Reports: Back pain, Extremity Pain. Denies: Neck pain, Swelling Skin: Denies: Rash, Wounds Neurological: Denies: Weakness, Parasthesia, Numbness Physical Exam Vital Signs/Narrative: Vital Signs Temp Pulse Resp BP Pulse Ox 02/06/18 09:13 97.3 F L 86 14 121/69 H 97 Inital Vital Signs reviewed: Yes General: Well nourished, Well developed, - - well-appearing, nad Head: Normocephalic, Atraumatic Eyes: Perrl, EOMI Neck: Supple - FROM, Nontender Back: Normal Inspection, - - tender left trapezius and area of rhomboids, less tender over body of scapula. no tenderness subacromial. FROM shoulder.. Negative for: Spinal tenderness Extremities: Nontender, No edema Skin: Normal color, No rash, No Trauma Neurological: Alert, Oriented x3, Cranial nerves II-XII grossly intact, Normal Strength, Normal Sensation, Normal Gait Psychological: Normal affect Diagnostic/Tx/Re-eval - Medical Decision Making No x-rays indicated. Consistent with trapezius strain. Supportive care advised and close outpatient follow-up. If her mild left hand symptoms are radicular, she will have persistent discomfort and probably develop worse pain and paresthesias, which she does not currently have, and should follow-up. Given naproxen and Flexeril prescriptions as well as medications here. She is comfortable with that plan. ED Disposition - Plan for ED Patient: Disposition: Home or Assisted Living Chief Complaint: Back Diagnosis: Strain of left trapezius muscle Instructions: ED Sprain Thoracic Spine Prescriptions: Naproxen [Naprosyn] 500 mg PO BID PRN #20 tab Cyclobenzaprine [Flexeril] 10 mg PO TID PRN #20 tab PRN Reason: Muscle Spasm Referrals: Molly Cano MD [Primary Care Provider] - 1 Week if not improving
[2018-02-06] MEDS: Orphenadrine 60 MG/2 ML Ampul IM (10:14)
[2018-02-06] MEDS: Ketorolac 60 MG/2 ML Vial IM (10:14)
[2018-02-06 10:32] VITALS: BP 107/67; PULSE 52; RESP 16; O2SAT 98
== END 2018-02-06 10:34 | disposition home or self-care (01) ==
PROVIDERS: Emergency Provider Emergency Medicine; Family Provider Internal Medicine; PCP Internal Medicine
DX: S29.012A Strain of muscle and tendon of back wall of thorax, initial encounter (principal); X50.0XXA Overexertion from strenuous movement or load, initial encounter; Y93.89 Activity, other specified; Y92.89 Other specified places as the place of occurrence of the external cause; Y99.8 Other external cause status; F17.200 Nicotine dependence, unspecified, uncomplicated
CPT/HCPCS: 96372; 99282

== ENCOUNTER 2018-03-12 17:13 | Emergency (ER) | payer MEDICAID, SELFPAY ==
[2018-03-12 17:14] VITALS: BP 116/66; PULSE 117; RESP 18; TEMP 36.6; O2SAT 98; BMI 29.2
--- NOTE | 2018-03-12 18:14 | ED.VIS.GEN ---
History of Present Illness Chief Complaint: Back Informant: Patient Onset: Hours - 2-3 Context: Sudden Onset - slipped on ice and landed on back vs. concrete Timing: Continuous Quality: ache/sore Location: right mid-low back Current Severity: Severe Maximum Severity: Severe Worsened by: movement. a little w/ deep breath. Relieved by: remaining still Associated Symptoms: none. no sob, hematuria, radiation down LE. Narrative: Slipped on ice and fell on back, pain on the right side. No other injuries. No head injury. No loss of consciousness, nausea, vomiting, neurologic symptoms. No abdominal pain. She urinated, and it was not bloody or abnormal. - Past Medical History (1) Opiate overdose Status: Resolved Past Medical History - Allergies and Home Meds Allergies/Adverse Reactions: Allergies egg Adverse Reaction (Verified 03/12/18 17:14) Nausea VOMITING Primary Care Physician: Molly Cano MD [Primary Care Provider] - Surgical History: tonsillectomy, - - section. Smoking Status: Current every day smoker Alcohol: None - Family History Maternal Family History: Reports: No pertinent history Paternal Family History: Reports: No pertinent history Review of Systems Respiratory: Denies: Dyspnea, Cough Gastrointestinal: Denies: Abdominal pain, Nausea, Vomiting Musculoskeletal: Reports: Back pain. Denies: Neck pain, Extremity Pain Skin: Denies: Rash, Abrasions, Wounds Neurological: Denies: Headache, Weakness, Parasthesia Physical Exam Vital Signs/Narrative: Vital Signs Temp Pulse Resp BP Pulse Ox 03/12/18 17:14 98 F 117 H 18 116/66 98 Inital Vital Signs reviewed: Yes General: Well nourished, Well developed Head: Normocephalic, Atraumatic Abdomen: Soft, Nontender, Nondistended, Normal bowel sounds Back: Normal Inspection, - - tender right paraspinal thoracic spine, in lower 3 ribs or so. no crepitance or flail segment, tender into lower ribs in right flank but no subcostal tenderness.. Negative for: Spinal tenderness Extremities: Nontender, No edema Skin: Normal color, No rash Neurological: Alert, Oriented x3, Cranial nerves II-XII grossly intact, Normal Strength, Normal Sensation, Normal Gait Psychological: Normal affect Diagnostic/Tx/Re-eval Clinical Impression(s) from Imaging Studies Ribs w/Chest X-Ray 03/12/18 18:30 IMPRESSION: RIBS: Normal x-ray examination of the ribs. CHEST: No acute cardiopulmonary disease or interval change. Electronically Signed: Duane Gray DO at 18:43 EST Tel [phone], Service support , - Medical Decision Making X-rays of the rib cage and chest are unremarkable. Patient was given naproxen and tramadol and asking for something else and stronger for pain. Given hx of opiate overdose, I am not comfortable prescribing her narcotics. Will offer a prescription for naproxen, also given discharge instructions with regards to other measures of supportive care. ED Disposition - Plan for ED Patient: Disposition: Home or Assisted Living Chief Complaint: Back Diagnosis: Fall from slipping on ice, Contusion of rib on right side Instructions: ED Contusion Rib Prescriptions: Naproxen [Naprosyn] 500 mg PO BID PRN #20 tab Referrals: Molly Cano MD [Primary Care Provider] - 1 Week if not improving
[2018-03-12] MEDS: traMADol 50 MG Tablet PO (18:20)
[2018-03-12] MEDS: Naproxen 500 MG Tablet PO (18:20)
--- NOTE | 2018-03-12 18:30 | RAD_ITS ---
STUDY: X-RAY - UNILATERAL RIBS ( RIGHT ) WITH CHEST REASON FOR EXAM: Female, 28 years old. Injury. TECHNIQUE - RIBS: 4 view(s) of the ribs. TECHNIQUE - CHEST: Single PA view of the chest. COMPARISON: Chest, June 26, 2017. FINDINGS - RIBS: Normal visualized ribs without a demonstrated fracture. FINDINGS - CHEST: The lungs are clear and expanded. There is no infiltrate or mass. There is no pneumothorax. There is no demonstrated pleural abnormality. Normal size heart. Normal mediastinum and mohan. Normal visualized pulmonary arteries. Normal visualized aortic arch and descending thoracic aorta. There are no visualized osseous changes. There is no demonstrated abnormality of the visualized soft tissue structures of the upper abdomen. RAD/Ribs Uni Min 3V w/PA Chest IMPRESSION: RIBS: Normal x-ray examination of the ribs. CHEST: No acute cardiopulmonary disease or interval change. Electronically Signed: Duane Gray DO at 18:43 EST Tel [phone], Service support ,
== END 2018-03-12 19:31 | disposition home or self-care (01) ==
PROVIDERS: Emergency Provider Emergency Medicine; Family Provider Internal Medicine; PCP Internal Medicine
DX: S20.211A Contusion of right front wall of thorax, initial encounter (principal); F17.200 Nicotine dependence, unspecified, uncomplicated; Z79.899 Other long term (current) drug therapy; W00.0XXA Fall on same level due to ice and snow, initial encounter; Y93.01 Activity, walking, marching and hiking; Y92.89 Other specified places as the place of occurrence of the external cause; Y99.8 Other external cause status
CPT/HCPCS: 71101; 99283

== ENCOUNTER 2018-04-14 14:05 | Emergency (ER) | payer MEDICAID, SELFPAY ==
[2018-04-14 14:06] VITALS: BP 107/70; PULSE 95; RESP 15; TEMP 36.7; O2SAT 100; BMI 29.2
--- NOTE | 2018-04-14 15:46 | ED.DCSUM_ITS ---
- ER Visit Summary Date of Service: 04/14/18 Chief Complaint: Abscess History of Present Illness: The patient is a 28 F who noted a pimple-like lesion along her left labia 2 or 3 weeks ago. It continued to grow in size. She popped the lesion last night got drainage of yellow pus. Area is still very tender and enlarged today. She denies fever or chills. Physical Examination: Vital signs unremarkable. She is afebrile. Head neck examination normal. Heart is regular rate and rhythm without murmur. Lungs sounds clear. Skin examination was a 1/2 cm diameter superficial draining abscess along the left labia majora. There is no significant surrounding edema or erythema. Test Results: [] Emergency Department Course and Treatment: Patient was then started on warm sitz baths. She will be treated with antibiotics, first dose given here. She will be given naproxen for pain. She is referred to [facility] for follow-up. Treatment Plan: [] Disposition: Discharge Impression: Cutaneous abscess left labia majora This note was generated with [employer] dictation software. It may contain incorrect words, spelling, and punctuation that were not noted in review of the chart prior to signing ED Disposition - Plan for ED Patient: Referrals: Molly Cano MD [Primary Care Provider] -
--- NOTE | 2018-04-14 15:46 | ED.DEP ---
ED Disposition - Plan for ED Patient: Disposition: Home or Assisted Living Instructions: ED Staph Infec Abx Tx Only Prescriptions: Cephalexin [Keflex] 500 mg PO Q6 #40 capsule Naproxen [Naprosyn] 500 mg PO BID PRN PRN #20 tablet PRN Reason: Pain Smz/Tmp Ds [Bactrim Ds] 1 tablet PO BID #20 tablet Referrals: Molly Cano MD [Primary Care Provider] - Soni Naranjo MD [STAFF PHYSICIAN] - 1-2 Weeks
[2018-04-14 16:04] VITALS: BP 110/75; PULSE 82; RESP 16; O2SAT 99
[2018-04-14] MEDS: Cephalexin 250 MG Capsule 500 MG PO (16:04)
[2018-04-14] MEDS: Naproxen 500 MG Tablet PO (16:05)
[2018-04-14] MEDS: Smz/Tmp Ds Tablet 1 TABLET PO (16:05)
== END 2018-04-14 16:06 | disposition home or self-care (01) ==
LOC: ED 15:53
PROVIDERS: Emergency Provider Emergency Medicine; Family Provider Family Medicine; PCP Family Medicine
DX: N76.4 Abscess of vulva (principal); F31.9 Bipolar disorder, unspecified; Z72.0 Tobacco use; Z79.899 Other long term (current) drug therapy
CPT/HCPCS: 99283

== ENCOUNTER 2018-05-24 09:47 | Emergency (ER) | payer MEDICAID, SELFPAY ==
[2018-05-24 09:48] VITALS: BP 89/53; PULSE 90; RESP 16; TEMP 36.7; O2SAT 99; BMI 28.5
--- NOTE | 2018-05-24 10:10 | ED.VISSUMM ---
- ER Visit Summary Date of Service: 05/24/18 Chief Complaint: Ear pain and headache History of Present Illness: The patient is a 28 F who reports right ear pain that started yesterday. She believes she has an ear infection. She is a mild headache. She has also had cough and congestion. Physical Examination: Vital signs significant for blood pressure 89/53. Patient is lying in bed no acute distress. She is nontoxic appearing. Head neck examination reveals right TM to be erythematous with pus behind the membrane. Canal itself is minimally erythematous. Left TM is clear. There is no tenderness of the mastoid air cells. Posterior pharynx exam is unremarkable. Heart is regular rate and rhythm. Lung sounds are clear. Abdomen is soft and nontender. Test Results: [] Emergency Department Course and Treatment: Patient be to the course of Augmentin will be given a prescription for Diflucan at the end of her antibiotic course. Treatment Plan: [] Disposition: Discharge Impression: Right otitis media This note was generated with [employer] dictation software. It may contain incorrect words, spelling, and punctuation that were not noted in review of the chart prior to signing ED Disposition - Plan for ED Patient: Referrals: Felice Aden MD [Primary Care Provider] -
--- NOTE | 2018-05-24 10:11 | ED.DEP ---
ED Disposition - Plan for ED Patient: Disposition: Home or Assisted Living Instructions: ED Otitis Media Acute Adult Prescriptions: Amox/Clavulanate Tablet [Augmentin Tablet] 875 mg PO Q12H #20 tablet Fluconazole [Diflucan] 150 mg PO X1 #1 tablet Referrals: Felice Aden MD [Primary Care Provider] - 1 Week
[2018-05-24] MEDS: Amox/Clavulanate 875 MG Tablet PO (10:28)
[2018-05-24 10:29] VITALS: BP 94/65; RESP 17
== END 2018-05-24 10:49 | disposition home or self-care (01) ==
LOC: ED 10:19
PROVIDERS: Emergency Provider Emergency Medicine; Family Provider Family Medicine; PCP Family Medicine
DX: H66.91 Otitis media, unspecified, right ear (principal); E11.9 Type 2 diabetes mellitus without complications; Z72.0 Tobacco use; Z79.84 Long term (current) use of oral hypoglycemic drugs
CPT/HCPCS: 99283

== ENCOUNTER 2018-09-25 22:49 | Emergency (ER) | payer MEDICAID, SELFPAY ==
[2018-09-25 22:49] VITALS: BP 119/71; PULSE 97; RESP 20; TEMP 36.8; O2SAT 98; BMI 26.4
--- NOTE | 2018-09-25 23:16 | ED.VIS.GEN ---
History of Present Illness Chief Complaint: Bite Informant: Patient Narrative: Patient stated she woke up this morning and had a superficial infection on her chin. It is indurated and swollen. She squeezed some pus out and broke it open. She has some very mild pain in this area. Using Tylenol. Current severity is mild. No frequent abscess in the past. She was not bit or stung by anything. - Past Medical History (1) Acute renal failure Status: Acute (2) Elevated troponin Status: Acute (3) Lactic acidosis Status: Acute (4) Sinus tachycardia Status: Acute (5) Opiate overdose Status: Resolved Past Medical History - Allergies and Home Meds Allergies/Adverse Reactions: Allergies egg Adverse Reaction (Verified 09/25/18 22:49) Nausea VOMITING Primary Care Physician: Felice Aden MD [Primary Care Provider] - Prior records reviewed: Yes Past Medical History: - Surgical History: tonsillectomy, - - section. Smoking Status: Current every day smoker Alcohol: None Drugs: None - See problem list - Family History Maternal Family History: Reports: No pertinent history Paternal Family History: Reports: No pertinent history Review of Systems General: Denies: Chills, Fever, Sweats Eyes: Denies: Visual changes - bilaterally, Diplopia ENT: Denies: Rhinorrhea, Sore throat Cardiovascular: Denies: Chest pain, Palpitations Respiratory: Denies: Dyspnea, Cough, Dyspnea on exertion Gastrointestinal: Denies: Abdominal pain, Nausea, Vomiting, Diarrhea, Melena, Hematochezia Genitourinary: Denies: Dysuria, Hematuria, Frequency Musculoskeletal: Denies: Back pain, Extremity Pain Skin: Reports: Abscess. Denies: Wounds Neurological: Denies: Headache, Weakness, Numbness Physical Exam Vital Signs/Narrative: Vital Signs Temp Pulse Resp BP Pulse Ox 09/25/18 22:49 98.2 F 97 20 H 119/71 98 General: Well nourished, Well developed, No Acute Distress Head: Normocephalic, Atraumatic Eyes: Perrl, EOMI ENT: Moist mucous membranes, No rhinorrhea Neck: Supple, Nontender Cardiovascular: Regular rate, Regular rhythm, No murmurs Respiratory: No distress, CTA bilaterally, Chest nontender Abdomen: Soft, Nontender, Nondistended, Normal bowel sounds Back: Nontender, Normal Inspection Extremities: Nontender, No edema Skin: No rash, - - She has a very small superficial abscess on her chin. It is busted open. I squeeze a mild amount of pus out. Is 0.5 x 0.5 cm. There is no surrounding cellulitis. There is mild inflammation.. Negative for: Normal color Neurological: Alert, Oriented x3, Cranial nerves II-XII grossly intact, Normal Strength, Normal Sensation Psychological: Normal affect, Normal Mood Diagnostic/Tx/Re-eval - Medical Decision Making Has a draining superficial abscess on her chin. Instructed on how to care for it. Even oral Bactrim and ibuprofen in the emergency department. Discharged with Mobic and clindamycin lotion and Bactrim pills to follow-up and return if she worsens ED Disposition - Plan for ED Patient: Disposition: Home or Assisted Living Diagnosis: Abscess of skin Instructions: Abscess Drainage Prescriptions: Smz/Tmp Ds [Bactrim Ds] 1 tab PO BID #14 tab Prescription Printed Clindamycin Phosphate [Cleocin T] 60 ml TP BID 14 Days #1 lotion Prescription Printed Meloxicam 15 mg PO DAILY #14 tab Prescription Printed Referrals: Felice Aden MD [Primary Care Provider] -
[2018-09-25] MEDS: Ibuprofen 600 MG Tablet PO (23:34)
[2018-09-25] MEDS: Smz/Tmp Ds Tablet 1 TABLET PO (23:34)
[2018-09-25 23:38] VITALS: BP 125/74; PULSE 91; RESP 16; O2SAT 99
== END 2018-09-25 23:39 | disposition home or self-care (01) ==
LOC: ED 23:28
PROVIDERS: Emergency Provider Emergency Medicine; Family Provider Family Medicine; PCP Family Medicine
DX: L02.01 Cutaneous abscess of face (principal); F17.200 Nicotine dependence, unspecified, uncomplicated
CPT/HCPCS: 99283

== ENCOUNTER 2018-09-27 02:58 | Emergency (ER) | payer MEDICAID, SELFPAY ==
[2018-09-27 02:59] VITALS: BP 112/83; PULSE 82; RESP 16; TEMP 37.1; O2SAT 100; BMI 28.0
--- NOTE | 2018-09-27 03:04 | ED.VIS.GEN ---
History of Present Illness Chief Complaint: Wound Informant: Patient Onset: Days - 2-3 Context: Gradual Onset Timing: Continuous Quality: pain/sore Location: chin Current Severity: Severe Maximum Severity: Severe Worsened by: palpation Associated Symptoms: nausea, increased swelling Narrative: Patient was seen here about 28 hours ago for the same, it was spontaneously draining, some pus was squeezed out of it and she was placed on Bactrim and topical Cleocin. She states the area has worsened, she states it hurts too much for her to squeeze it. She is nauseated, feels like the swelling is going down toward her anterior neck, denies any trouble breathing or fevers. - Past Medical History (1) Opiate overdose Status: Resolved Past Medical History - Allergies and Home Meds Allergies/Adverse Reactions: Allergies egg Adverse Reaction (Verified 09/25/18 22:49) Nausea VOMITING Primary Care Physician: Felice Aden MD [Primary Care Provider] - Surgical History: tonsillectomy, - - section. Smoking Status: Current every day smoker - Family History Maternal Family History: Reports: No pertinent history Paternal Family History: Reports: No pertinent history Review of Systems General: Denies: Chills, Fever Gastrointestinal: Reports: Nausea. Denies: Abdominal pain, Vomiting Skin: Reports: Abscess. Denies: Rash Physical Exam Vital Signs/Narrative: Vital Signs Temp Pulse Resp BP Pulse Ox 09/27/18 02:59 98.7 F 82 16 112/83 H 100 Inital Vital Signs reviewed: Yes General: Well nourished, Well developed, No Acute Distress Head: Normocephalic, Atraumatic Eyes: Perrl, EOMI ENT: Moist mucous membranes, No rhinorrhea, - - Indurated, tender abscess on chin, there is some spontaneous discharge present from the wound but it is not easily expressible. No stridor. No sublingual edema. Neck: Supple, Nontender Respiratory: No distress, Chest nontender Skin: - - 3 cm abscess anterior chin with induration and surrounding erythema, very tender. Neurological: Alert, Oriented x3, Cranial nerves II-XII grossly intact, Normal Strength, Normal Sensation, Normal Gait Psychological: Normal affect, Normal Mood Diagnostic/Tx/Re-eval - Medical Decision Making Abscess does appear to need to be incised and drained, however this did not yield a large amount of purulent material. There was a small amount initially but then mostly an empty abscess cavity. I advised continuing outpatient Bactrim and topical Cleocin, she has not yet failed antibiotic therapy since she is only been on it for about 24 hours. I will have her follow-up with plastics in case this does not improve, but I would expect that once the antibiotic start working that this will heal. Procedures Procedure(s): Simple incision and drainage cutaneous facial abscess --area was prepped with chlorhexidine and anesthetized using 2 cc 1% plain lidocaine, and incised horizontally along skin tension lines with an 11 blade, very small incision was made. Small amount of purulent material was expressed, the area was deloculated with the tips of hemostat/Kellys, no other significant amount of purulent material were expressed as a result of this. It was dressed with bacitracin. Tolerated well. ED Disposition - Plan for ED Patient: Disposition: Home or Assisted Living Diagnosis: Cutaneous abscess of face Instructions: ABSCESS, Incision and Drainage Referrals: Felice Aden MD [Primary Care Provider] - Mahamed Franco MD [STAFF PHYSICIAN] - 3-5 Days if not improving (Or if you are concerned about the healing/scarring of the area) Additional Instructions: Continue your previously prescribed oral and topical antibiotics. Perform frequent dressing changes if there is any blood or discharge on the dressing. Hot compresses to the area to encourage drainage.
[2018-09-27] MEDS: Ondansetron ODT 4 MG Tablet 8 MG PO (03:51)
[2018-09-27 04:30] VITALS: BP 112/83; PULSE 64; O2SAT 100
== END 2018-09-27 04:31 | disposition home or self-care (01) ==
PROVIDERS: Emergency Provider Emergency Medicine; Family Provider Family Medicine; PCP Family Medicine
DX: L02.01 Cutaneous abscess of face (principal); F17.200 Nicotine dependence, unspecified, uncomplicated
CPT/HCPCS: 10060; 99283

== ENCOUNTER 2018-12-29 11:24 | Emergency (ER) | payer MEDICAID, SELFPAY ==
[2018-12-29 11:26] VITALS: BP 100/62; PULSE 77; RESP 17; TEMP 36.4; O2SAT 99; BMI 28.3
--- NOTE | 2018-12-29 11:50 | EKG12_ITS ---
Test Reason : DYSRHYTHMIA Blood Pressure : / mmHG Vent. Rate : 060 BPM Atrial Rate : 060 BPM P-R Int : 158 ms QRS Dur : 082 ms QT Int : 394 ms P-R-T Axes : 028 033 032 degrees QTc Int : 394 ms Normal sinus rhythm Normal ECG Confirmed by PIERCE SHETTY, KALI ([id number]), telegraph editor CARLINE JOLLEY ([id number]) on 12/31/2018 11:02:55 AM Referred By: BENJIE Confirmed By:KALI PELAYO MD
--- NOTE | 2018-12-29 11:50 | CT_ITS ---
STUDY: CT BRAIN WITHOUT CONTRAST REASON FOR EXAM: Female, 28 years old. One week history of dizziness following a recent fall. History of seizures. RADIATION DOSAGE (If Supplied By Facility): CTDIvol = ( 44.99 ) mGy, DLP = ( 745.49 ) mGycm TECHNIQUE: Transaxial CT imaging of the brain was performed without administration of intravenous contrast material. Individualized dose optimization techniques were used for this CT. COMPARISON: Comparison is made with prior study dated May 14, 2017. FINDINGS: Normal soft tissue structures. Normal calvarium. Normal size ventricles and extra-axial spaces for the patient's age. Normal white matter tracts of the cerebral hemispheres. Normal basal ganglia and thalami. Normal brainstem. Normal cerebellum. There is no intracranial hemorrhage. There are no findings of an acute ischemic infarction. Normal visualized paranasal sinuses. CT/Brain/Head without Contrast IMPRESSION: Normal unenhanced CT scan of the brain. Electronically Signed: Alvino Boston, at 13:10 EST , Service support ,
--- NOTE | 2018-12-29 11:52 | ED.DCSUM_ITS ---
History of Present Illness Chief Complaint: Headache Informant: Patient Onset: Weeks Context: Gradual Onset Current Severity: Severe Maximum Severity: Moderate Narrative: Patient is a 28-year-old female with history of concussion presenting with presyncopal episode. Patient states that she had 2 head injuries within the last 3 weeks the last one being . She notes that she had a headache since . She notes she is intermittent but is dizziness in her left eye with associated vomiting. Today she is going on the shower when she started to feel very dizzy and lightheaded. She fell forward and struck her head on the counter in the bathroom. She cut her lip and also hit her top of her head when she fell. Patient's last tetanus was 5 years ago. Patient states she did not lose consciousness when this happened. She has been alternating Tylenol Motrin for her headaches over the past week. She denies associated numbness or tingling. She came in today because of hitting her head again and her continued headaches. Patient's last menstrual period was about 2 weeks ago. She does not think she is . She denies any current nausea, vomiting, abdominal pain, chest pain, shortness of breath or vision changes. She denies any fever or rash. Past Medical History - Allergies and Home Meds Allergies/Adverse Reactions: Allergies No Known Allergies Allergy (Verified 12/29/18 11:26) Primary Care Physician: Felice Aden MD [Primary Care Provider] - Past Medical History: None Surgical History: tonsillectomy, - - section. Lives: With Family Smoking Status: Current every day smoker - Family History Maternal Family History: Reports: No pertinent history Paternal Family History: Reports: No pertinent history Review of Systems All systems negative except as indicated Eyes: Reports: Visual changes - left Skin: Reports: Abrasions - Bottom lip Neurological: Reports: Headache. Denies: Parasthesia, Numbness Physical Exam Vital Signs/Narrative: Vital Signs Temp Pulse Resp BP Pulse Ox 12/29/18 11:26 97.6 F L 77 17 100/62 99 Inital Vital Signs reviewed: Yes General: Well nourished, Well developed, No Acute Distress, - - She is texting on her phone Head: Normocephalic, Atraumatic Eyes: Perrl, EOMI, - - No nystagmus, normal visual walker ENT: Moist mucous membranes, No rhinorrhea, TM's clear, - - No septal hematoma, no malocclusion Neck: Supple, Nontender, - - Line tenderness, normal range of motion Cardiovascular: Regular rate, Regular rhythm, No murmurs Respiratory: No distress, CTA bilaterally, Chest nontender Abdomen: Soft, Nontender, Nondistended, Normal bowel sounds Back: Nontender, Normal Inspection Extremities: Nontender, No edema Skin: Normal color, No rash, Trauma - Facial abrasion to the right bottom lip, does not gape or cross the vermilion border Neurological: Alert, Oriented x3, Cranial nerves II-XII grossly intact, Normal Strength, Normal Sensation Psychological: Normal affect, Normal Mood Diagnostic/Tx/Re-eval Clinical Impression(s) from Imaging Studies Brain CT 12/29/18 11:50 IMPRESSION: Normal unenhanced CT scan of the brain. Electronically Signed: Alvino Boston, at 13:10 EST , Service support , - Rhythm Strip Rhythm Strip: Sinus Rhythm Rate: 60 Ectopy: None - EKG Initial EKG Interpretation: Sinus Rhythm, - - Sinus rhythm at a rate of 60 Normal intervals Normal axis Normal ST segments - Medical Decision Making Patient is evaluated for presyncopal episode and hitting her head. She has a superficial lip laceration but does not require laceration repair/suturing. She is a normal neurologic exam. Patient does not have any evidence of other trauma. Patient is on her phone both times I go into her room. She initially states she does not want an IV and would just like to try oral medications that she is afraid of needles. Patient is ordered Tylenol and Zofran before CT. CT is obtained which does not show any acute intracranial process. Patient is then given oral ibuprofen. Patient has a normal neurologic exam and no meningeal signs. I suspect her headache is tension headache versus from the multiple head injuries/postconcussive syndrome. On reevaluation she states she is not feeling any better however she still on her phone sitting in the room. 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 She had malaise easily out of the emergency room. Patient is counseled she can return to the emergency room anytime for reevaluation and further treatment of her headache. Patient is counseled on signs and symptoms requiring return to the emergency room. Patient verbalizes agreement and understand this plan. Patient discharged home in stable and improved condition. ED Disposition - Plan for ED Patient: Disposition: Home or Assisted Living Diagnosis: Lightheaded, Post-concussion headache, Abrasion of lip, initial encounter Instructions: Treatment for Mild Traumatic Brain Injury (Concussion), NEAR SYNCOPE, Unknown Prescriptions: Ondansetron [Zofran Odt] 4 mg PO Q8H PRN PRN #15 tab PRN Reason: Nausea Prescription Printed Referrals: Felice Aden MD [Primary Care Provider] - Additional Instructions: These make sure you follow-up with your primary care doctor for these multiple head injuries as well as almost passing out today. Continue to alternate Tylenol and Motrin. You may also add in Benadryl as needed. Return to emergency room if you decide that you would like further treatment. You do not look like you have any acute bleeding around the brain or other serious/emergent condition at this time. Your EKG was normal.
[2018-12-29] MEDS: Ondansetron ODT 4 MG Tablet PO (12:20)
[2018-12-29] MEDS: Acetaminophen 325 MG Tablet 650 MG PO (12:20)
[2018-12-29 12:29] VITALS: BP 101/60; BP 102/64; BP 106/66; PULSE 63; PULSE 71; PULSE 72; RESP 16
[2018-12-29] MEDS: Ibuprofen 600 MG Tablet PO (13:58)
[2018-12-29 14:13] VITALS: BP 104/62; PULSE 70; RESP 17; O2SAT 97
== END 2018-12-29 14:15 | disposition home or self-care (01) ==
PROVIDERS: Emergency Provider Emergency Medicine; Family Provider Family Medicine; PCP Family Medicine
DX: G44.309 Post-traumatic headache, unspecified, not intractable (principal); R42 Dizziness and giddiness; S00.511A Abrasion of lip, initial encounter; F17.200 Nicotine dependence, unspecified, uncomplicated; W18.30XA Fall on same level, unspecified, initial encounter; Y93.E1 Activity, personal bathing and showering; Y92.002 Bathroom of unspecified non-institutional (private) residence as the place of occurrence of the external cause; Y99.8 Other external cause status
CPT/HCPCS: 70450; 93005; 99284